=== PATIENT | female | born 1980 | race Caucasian/White ===

== ENCOUNTER 2023-12-22 17:14 | Emergency (ER) | payer OTHER, MEDICAID, SELFPAY ==
[2023-12-22] VITALS (8 sets, daily range): BP systolic 115–156; BP diastolic 78–90; PULSE 66–79; RESP 16–18; TEMP 36.9; O2SAT 95–97; BMI 38.9
--- NOTE | 2023-12-22 17:32 | DI.CT.S_ITS ---
PROCEDURE: CT HEAD/BRAIN WO CON INDICATIONS: head pain/confusion/stroke like sx TECHNIQUE: Noncontrast 4.5 mm thick angled axial sections acquired from the foramen magnum to the vertex, with coronal and sagittal reformats. For radiation dose reduction, the following was used: automated exposure control, adjustment of mA and/or kV according to patient size. COMPARISON: None. FINDINGS: Image quality: Diagnostic. CSF spaces: Basal cisterns are patent. No extra-axial fluid collections. Ventricles are normal in size and shape. Brain: No midline shift. No intracranial masses or hemorrhage. Blank-white matter interface is normal. Skull and face: Calvarium and visualized facial bones are intact, without suspicious lesions. Sinuses: Visualized sinuses and mastoids are clear. IMPRESSION: No acute intracranial pathology. Approved by: Fazal Roman M.D. on 12/22/2023 at 18:09
[2023-12-22 19:17] LABS: Add Manual Diff / Slide Review NO; Basophils Absolute Auto 100 /uL (0-100); Basophils Percent Auto 0.6 % (0-2); Eosinophils Absolute Auto 100 /uL (0-450); Eosinophils Percent Auto 1.2 % (2-4); Hematocrit 39.5 % (36-46); Hemoglobin 13.2 g/dL (12.0-16.0); Lymphocytes Absolute Auto 2800 /uL (1100-4500); Lymphocytes Percent Auto 25.6 % (25-40); Mean Corpuscular HGB Conc 33.4 % (30-36); Mean Corpuscular Hemoglobin 30.8 PG (26-34); Mean Corpuscular Volume 92.3 fL (80-100); Monocytes Absolute Auto 500 /uL (0-900); Monocytes Percent Auto 4.8 % (3-14); Neutrophils Absolute Auto 7500 /uL (1500-7000); Neutrophils Percent Auto 67.8 % (50-75); Platelet Count 390 X10^3/uL (150-400); Red Blood Cell Count 4.28 X10^6/uL (4.0-5.2); Red Cell Distribution Width 14.7 % (11.6-14.8); White Blood Cell Count 11.1 X10^3/uL (4.5-11.0)
[2023-12-22 19:29] LABS: Alanine Aminotransferase 22 IU/L (<35); Albumin 4.4 g/dL (3.5-5.0); Albumin Globulin Ratio 1.3 (1.0-2.8); Alkaline Phosphatase 81 U/L (38-126); Aspartate Aminotransferase 21 IU/L (14-36); BUN Creatinine Ratio 13.7 (6-22); Bilirubin Total 0.3 mg/dL (0.2-1.3); Blood Urea Nitrogen 10 mg/dL (7-17); Calcium 9.2 mg/dL (8.4-10.2); Carbon Dioxide 22 mmol/L (22-32); Chloride 105 mmol/L (98-107); Estimated Glomerular Filt Rate > 60 mL/min (>60); Globulin 3.3 g/dL (1.7-4.1); Glucose 91 mg/dL (70-100); HEMOLYSIS < 15 (0-50); Lipase 201 U/L (23-300); Potassium 3.8 mmol/L (3.4-5.1); Sodium 136 mmol/L (137-145); Total Protein 7.7 g/dL (6.3-8.2)
--- NOTE | 2023-12-22 22:06 | ED_ITS ---
HPI - Neuro Symptoms/Deficit General Chief Complaint: Neuro Symptoms/Deficit Stated Complaint: states wants to be checked out Time Seen by Provider: 12/22/23 19:08 Mode of arrival: Ambulatory History of Present Illness HPI Narrative: 43-year-old woman with a history of chronic migraine, alcohol use disorder currently on naltrexone and free of alcohol for 43 days was at work today turned around felt dizzy had a near syncopal episode, blurry vision poor focus racing heart felt she had to work at thinking to think. She went home from work and her partner felt that she needed further evaluation. She now has a significant headache that feels like her usual chronic migraine. She has never had symptoms like she experienced earlier as a migraine prodrome. No fevers, cough, chills. No current heart palpitations, chest pain, nausea or vomiting On Anticoagulants: No Review of Systems Review of Systems Narrative: Pertinent positive and negative findings as per HPI Hematologic/Lymphatic On Anticoagulants: No Patient History Medical History (Updated 12/22/23 @ 22:54 by Brenda Mcleod MD) Alcohol use disorder in remission Chronic migraine Exam Initial Vital Signs Initial Vital Signs: Vital Signs Temperature 98.5 F 12/22/23 17:18 Pulse Rate 79 12/22/23 17:18 Respiratory Rate 16 12/22/23 17:18 Blood Pressure 156/90 H 12/22/23 17:18 Pulse Oximetry 97 12/22/23 17:18 Oxygen Delivery Method Room Air 12/22/23 17:18 General: Healthy appearing, in no acute distress. Able to give a complete and coherent history. Well-nourished well-developed HEENT: Moist mucous membranes, normal sclera with reactive pupils, visual acuity is back to her baseline, peripheral saab are unremarkable Respiratory: Lungs are clear to auscultation, no wheezing no rales no rhonchi. Full and symmetrical air movement Cardiac: Regular rate and rhythm no murmurs no bruits Abdomen: Soft, nontender, good bowel tones, no flank pain Skin: Warm and dry, no rashes Neurologic: Grossly neurologically intact with no obvious asymmetries or abnormalities Extremities: No trauma, well perfused Psych: Cooperative, appropriate insight and affect Course Orders Ordered: ED Orders 12/22/23 17:32 CT head/brain wo con Stat 12/22/23 19:00 Complete Blood Count AUTO DIFF Stat Comprehensive Metabolic Panel Stat Lipase Stat Ondansetron HCl (Ondansetron 4 Mg/2 Ml Inj) 4 mg IV NOW PRN PRN Reason: Nausea And Vomiting Vital Signs Vital signs: Vital Signs - 8 hr 12/22/23 17:18 12/22/23 20:37 12/22/23 21:00 Temperature 98.5 F Pulse Rate 79 67 66 Respiratory Rate 16 Blood Pressure 156/90 H 123/78 Pulse Oximetry 97 97 96 Oxygen Delivery Method Room Air 12/22/23 21:30 Temperature Pulse Rate 69 Respiratory Rate Blood Pressure Pulse Oximetry 95 Oxygen Delivery Method MDM - Neuro Symptoms/Deficit Lab Data 12/22/23 19:00 12/22/23 19:00 Labs: Lab Results 12/22/23 Range/Units 19:00 WBC 11.1 H (4.5-11.0) X10^3/uL RBC 4.28 (4.0-5.2) X10^6/uL Hgb 13.2 (12.0-16.0) g/dL Hct 39.5 (36-46) % MCV 92.3 (80-100) fL MCH 30.8 (26-34) PG MCHC 33.4 (30-36) % RDW 14.7 (11.6-14.8) % Plt Count 390 (150-400) X10^3/uL Neut % (Auto) 67.8 (50-75) % Lymph % (Auto) 25.6 (25-40) % [place] % (Auto) 4.8 (3-14) % Eos % (Auto) 1.2 L (2-4) % Baso % (Auto) 0.6 (0-2) % Neut # (Auto) 7500 H (3160-5521) /uL Lymph # (Auto) 2800 (7068-9937) /uL [place] # (Auto) 500 (0-900) /uL Eos # (Auto) 100 (0-450) /uL Baso # (Auto) 100 (0-100) /uL Sodium 136 L (137-145) mmol/L Potassium 3.8 (3.4-5.1) mmol/L Chloride 105 (98-107) mmol/L Carbon Dioxide 22 (22-32) mmol/L BUN 10 (7-17) mg/dL Creatinine 0.73 (0.52-1.04) mg/dL Estimated GFR > 60 (>60) mL/min BUN/Creatinine Ratio 13.7 (6-22) Glucose 91 (70-100) mg/dL Calcium 9.2 (8.4-10.2) mg/dL Total Bilirubin 0.3 (0.2-1.3) mg/dL AST 21 (14-36) IU/L ALT 22 (<35) IU/L Alkaline Phosphatase 81 (38-126) U/L Total Protein 7.7 (6.3-8.2) g/dL Albumin 4.4 (3.5-5.0) g/dL Globulin 3.3 (1.7-4.1) g/dL Albumin/Globulin Ratio 1.3 (1.0-2.8) Lipase 201 (23-300) U/L Point of Care Testing Test Results Negative Urine Dip Bedside Urine Glucose Negative Bedside Urine Bilirubin - Negative Bedside Urine Ketone - Negative Urine Specific [place] 1.010 Bedside Urine Occult Blood - Negative Bedside Urine pH 7.0 Bedside Urine Protein - Negative Bedside Urine Urobilinogen - Negative Bedside Urine Nitrite - Negative Bedside Urine Leukocytes - Negative Esterase MDM Narrative Medical decision making narrative: CC: Near syncopal episode, no headache Complicating co-morbidities: Chronic migraine, she has been on naltrexone and alcohol-free now for 43 days Data collected from: patient Differential considered: Dehydration, infection, migraine, viral syndrome Exam documented above, pertinent findings include: Benign exam at this time Lab Test results independently reviewed as above. Pertinent findings: CBC is unremarkable Chemistries are reassuring with normal blood sugar at 91 Urine does not suggest urinary tract infection Patient is not Imaging studies independently reviewed: CT head is unremarkable Treatments: Treatment for her migraine, IV Toradol, Benadryl and Compazine were effective in controlling headache Discussion: 43-year-old woman with a near syncopal episode earlier today followed by migraine in the setting of chronic migraines. No evidence of significant dehydration, sure abnormalities electrolyte abnormalities, anemia or infection. CT scan of her head is reassuring. Reviewed all of these findings with her. Did offer to treat her current migraines with medications as above. She is following up with her primary care physician later this week. Encouraged her to return if symptoms are worsening or new findings are appreciated. At this time there has no indication for additional imaging or hospitalization Discharge Plan Departure Patient Disposition: Home Clinical Impression: Near syncope Migraine Qualifiers: Migraine type: unspecified Status migrainosus presence: without status migrainosus Intractability: not intractable Qualified Code(s): G43.909 - Migraine, unspecified, not intractable, without status migrainosus Instructions: DI for Migraine Activity Restrictions/Additional Instructions: Thank you for coming in today Your blood work and head CT were very reassuring. There was no evidence of infection, significant anemia, electrolyte abnormalities, your kidney function is normal liver function looks good. Your brain is beautiful with no signs of abnormalities You are given Toradol, Benadryl and Compazine to help with your current migraine headache At this point I do not have a full explanation for your symptoms earlier this morning however I am not seeing anything that is life-threatening or that requires hospitalization. If you find that you are getting worse or develop any new symptoms, please feel free to return to the emergency department for further evaluation. Referrals: Miscellaneous,[facility] [Primary Care Provider] - Stand Alone Forms: Patient Portal/API
[2023-12-22] MEDS: PROCHLORPERAZINE 10 MG/2 ML VIAL IV (22:45)
[2023-12-22] MEDS: KETOROLAC 30 MG/ML VIAL 15 MG IV (22:46)
[2023-12-22] MEDS: diphenhydrAMINE 50 MG/ML VIAL 25 MG IV (22:47)
== END 2023-12-22 23:13 | disposition home or self-care (01) ==
PROVIDERS: Emergency Medicine; Emergency Provider Emergency Medicine
DX: R55 Syncope and collapse (principal); G43.909 Migraine, unspecified, not intractable, without status migrainosus
CPT/HCPCS: 36415; 70450; 80053; 81003; 81025; 83690; 85025; 96374; 96375; 99284; J0780; J1200; J1885

== ENCOUNTER 2024-06-29 16:20 | Emergency (ER) | payer OTHER, MEDICAID, SELFPAY ==
[2024-06-29] VITALS (15 sets, daily range): BP systolic 106–155; BP diastolic 56–96; PULSE 78–97; RESP 13–25; TEMP 36.3; O2SAT 91–98; BMI 37.2
[2024-06-29] MEDS: ONDANSETRON 4 MG/2 ML INJ IV ×2 (17:20→21:32)
[2024-06-29] MEDS: LORazepam 2 MG/ML INJ IV ×2 (17:20→21:29)
--- NOTE | 2024-06-29 17:31 | EKG_ITS ---
[address] [address] Test Date: 2024-06-29 Pat Name: Diane Salcedo Department: [facility] Room: Gender: Female Magistrate Assistant: MANAS : 1980 Requested By: Order Number: [id number] Reading MD: Baltazar Duffy MD Measurements Intervals [place] Rate: 87 P: 66 DE: 174 QRS: 35 QRSD: 92 T: 31 QT: 368 QTc: 442 Interpretive Statements Normal sinus rhythm Electronically Signed On 06-29-2024 20:02:14 PDT by Baltazar Duffy MD
[2024-06-29 17:32] LABS: Add Manual Diff / Slide Review NO; Basophils Absolute Auto 0 /uL (0-100); Basophils Percent Auto 0.5 % (0-2); Eosinophils Absolute Auto 0 /uL (0-450); Eosinophils Percent Auto 0.6 % (2-4); Hemoglobin 14.8 g/dL (12.0-16.0); Lymphocytes Absolute Auto 2900 /uL (1100-4500); Lymphocytes Percent Auto 44.7 % (25-40); Mean Corpuscular HGB Conc 33.6 % (30-36); Mean Corpuscular Hemoglobin 30.8 PG (26-34); Mean Corpuscular Volume 91.5 fL (80-100); Monocytes Absolute Auto 300 /uL (0-900); Monocytes Percent Auto 4.6 % (3-14); Neutrophils Absolute Auto 3200 /uL (1500-7000); Neutrophils Percent Auto 49.6 % (50-75); Platelet Count 411 X10^3/uL (150-400); Red Blood Cell Count 4.81 X10^6/uL (4.0-5.2); Red Cell Distribution Width 14.4 % (11.6-14.8); White Blood Cell Count 6.5 X10^3/uL (4.5-11.0)
[2024-06-29 17:37] LABS: Acetaminophen < 10 ug/mL (10-30); Alanine Aminotransferase 33 IU/L (<35); Albumin 4.5 g/dL (3.5-5.0); Albumin Globulin Ratio 1.3 (1.0-2.8); Alkaline Phosphatase 88 U/L (38-126); Aspartate Aminotransferase 41 IU/L (14-36); BUN Creatinine Ratio 11.2 (6-22); Bilirubin Total 0.5 mg/dL (0.2-1.3); Blood Urea Nitrogen 10 mg/dL (7-17); Calcium 9.2 mg/dL (8.4-10.2); Carbon Dioxide 22 mmol/L (22-32); Chloride 108 mmol/L (98-107); Estimated Glomerular Filt Rate > 60 mL/min (>60); Ethanol (ETOH) 218 mg/dL; Globulin 3.5 g/dL (1.7-4.1); Glucose 105 mg/dL (70-100); HEMOLYSIS < 15 (0-50); Potassium 3.8 mmol/L (3.4-5.1); Salicylate < 1.0 mg/dL (<20); Sodium 145 mmol/L (137-145)
[2024-06-29 17:41] LABS: COVID19 -Nasal RAPID Negative (Negative)
[2024-06-29 17:42] LABS: Ur Creatinine Normal (Normal); Ur Specific Gravity Normal (Normal); Urine pH Normal (Normal)
[2024-06-29 17:43] LABS: UR Morphine/Opiate cutoff 300 Negative (Negative); Urine Amphetamines Negative (Negative); Urine Barbiturates Negative (Negative); Urine Benzodiazepines Positive (Negative); Urine Cocaine Negative (Negative); Urine MDMA Negative (Negative); Urine Methadone Negative (Negative); Urine Methamphetamines Negative (Negative); Urine Oxycodone Negative (Negative); Urine Phencyclidine Negative (Negative); Urine Tetrahydrocannabinol Positive (Negative); Urine Tricyclic Antidepressant Negative (Negative)
[2024-06-29 18:02] LABS: Free T4, Direct Thyroxine 0.95 ng/dL (0.78-2.19)
--- NOTE | 2024-06-29 18:02 | CM.SWNOTE ---
ED MARKETING SPECIALIST Assessment Note: MARKETING SPECIALIST - Clarifier Operator Helper Assessment MARKETING SPECIALIST/Clarifier Operator Helper Assessment Time Spent with Patient Start date 06/29/24 Visit Start Time 16:20 End date 06/29/24 Visit End Time 16:58 Total time Care Management spent on 38 minutes patient visit-in minutes Substance Abuse Screening Include Onset, Duration, Intensity Presenting Problem Patient presented to the ED requesting ETOH detox. Patient states she had her last drink on 06/29 at 1550. Patient states her stomach is burning, her body hurts and she is tearful/regretful. Precipitating Event(s) Patient states she has been houseless and living in her truck for the past 45 days. She has been attempting to get into a program with the [facility] who provides motel vouchers and other community resources. Patient Strengths Patient is supported by Kristy Butler, Resource and Lead Ramp Agent at the [facility] (ph# ) and is also taking initiative to seek help. Patient gives consent for IH to contact Kristy Butler for continued care due to patient with no phone. Current Behavioral Health Provider(s) [facility] Include Facility, Provider, Ph. # Arash Avalos ph# [phone]. [place], [place]. Family Hx of Behavioral Abuse None reported. Per Sveta, hx of alcohol use with withdrawal and suicidal ideation. Rehab Facilities? ((Date(s), Location(s) None reported. ) [facility] - 05/19/24, 06/13/24 for emergency/inpatient for similar symptoms. History of Withdrawal? Seizures? Pt reports hx of seizures with withdrawal. Initial CIWA is 32. Longest Period of Sobriety several months Psychosocial information & Support Patient is a 43yo female, Systems currently living in her truck in [place], is here for ETOH detox. School/Work None reported. Legal Concerns Legal Matters - Outstanding Issues None reported. Mental Status Orientation (Person/Place/Time) AOx3 Stated Mood Tearful, I'm so sorry. Affect (Congruent with Mood?) Tearful, full range, congruent with mood Thought Content - Specify/Describe None reported, none identified Obsessions, Delusions, Hallucinations during assessment. Thought Processes (Dhqqhwx-Prwgaoks-Uxnx Logical, coherent Wgbrztrz-Jykbimoe-Wbcwwalstt- Sapzwzxlglgjbe-Fapsnah-Npasmuogdzdf- Thought Blocking) Speech (Egeamb-Nwwq-Lwelvuf-Rapid-Soft- Normal Loud-Pressured) Motor (Pvbrmb-Yxmyywmhm-Nqyq-Other) Normal Insight (Rpbe-Joge-Bncq/Limited) Good Judgement (Jvos-Alvw-Lhuu/Limited) Fair/limited Impulse Control (Adequate-Impaired) Impaired Memory (Phxxolfeh-Nlvjqj-Nutnnw, Intact Impaired-Intact) Concentration (Intact-Impaired) Intact Attention (Intact-Impaired) Intact Behavior (Appropriate-Inappropriate) Appropriate Additional Comment Patient is calm, cooperative and communicative during assessment. Patient is hopeful to receive help. Risk Assessment Suicidal Ideation (Plan) No Homicidal Ideation (Plan) No Intervention Intervention Reviewed chart and discussed with ED Provider pt's medical status and discharge needs. ED MARKETING SPECIALIST meets with patient. Patient endorses heavy ETOH use (1/2 gallon of whiskey every day) and has been drinking more heavily in the last 8 days. ED MARKETING SPECIALIST and patient discuss goals of care. Patient explains they are agreeable to receive inpatient detox for ETOH withdrawal at this time. At this time, it is the opinion of this MARKETING SPECIALIST that patient would benefit from inpatient detox for ETOH withdrawal. MARKETING SPECIALIST informs ED provider, Dr. Williamson, who indicates agreement. Plan RA Plan Once patient is medically clear, ED staff will attempt to find inpatient detox placement for patient. NORY Montague
[2024-06-29 19:03] LABS: Bacteria Urine None Seen; Culture Indicated Urine Cult Not Indicated; RBC Urine None Seen (0-5/HPF); Squamous Epithelial Cell Urine 1-5 /HPF (0-5/HPF); Urine Volume 10mL (spun); WBC Urine None Seen (0-5/HPF)
[2024-06-29] MEDS: PHENobarbital 65 MG/ML VIAL 130 MG IV (19:10)
[2024-06-29] MEDS: SODIUM CHLORIDE 0.9% 1,000 ML 1000 ML IV (19:10)
[2024-06-29] MEDS: LORazepam 2 MG/ML INJ 1 MG IV (19:15)
--- NOTE | 2024-06-29 20:02 | CM.SWNOTE ---
Addendum entered by CASIE Denis 06/29/24 20:18: Pt gave permission for IH to communicate with Kristy Butler, Resource and Mold Laminator at the [facility]# [phone]. NORY Montague Original Note: ED WIND POWER PROJECT MANAGER Note: Pt still pending ED Provider evaluation, ED WIND POWER PROJECT MANAGER assessment completed. ED WIND POWER PROJECT MANAGER calls [facility], it is reported there are no female beds available. ED WIND POWER PROJECT MANAGER calls [facility], it is reported there are female beds available. (fax# [phone]). ED WIND POWER PROJECT MANAGER reviewed above with ED RN, Charbel, and GIFTED TEACHER; ED Staff to coordinate referral to detox when medically cleared. NORY Montague
--- NOTE | 2024-06-29 21:41 | ED.ALCOHOL ---
HPI - Alcohol <Estelle Ochoa DO - Last Filed: 07/05/24 08:30> General Chief Complaint: Toxicology Problem Stated Complaint: detox Time Seen by Provider: 06/29/24 19:00 History of Present Illness HPI narrative: Patient is a 43-year-old female history of anxiety alcoholism presenting today with wanting detox. Reports that her mom April 27 since then she has been drinking off and on a week on a week off at times. She has been drinking 1 gal of whiskey daily for the last 8 days. She has had a 5th today. She has had some shakes. No hallucinations. She has been living in her car since her mom family not wanting her around. If she goes to detox then she can get housing support through [employer]. Related Data Allergies Allergy/AdvReac Type Severity Reaction Status Date / Time No Known Drug Allergies Allergy Verified 06/29/24 16:57 Patient History <Estelle Ochoa DO - Last Filed: 07/05/24 08:30> Medical History Alcohol use disorder in remission Chronic migraine Social History Smoking Status: Current every day smoker Smoking Status: Current every day smoker tobacco type: cigarettes and vaping Alcohol type: hard liquor Exam <Estelle Ochoa DO - Last Filed: 07/05/24 08:30> Initial Vital Signs Initial Vital Signs: Vital Signs Temperature 97.4 F L 06/29/24 16:58 Pulse Rate 95 H 06/29/24 16:58 Respiratory Rate 18 06/29/24 16:58 Blood Pressure 155/96 H 06/29/24 16:58 Pulse Oximetry 95 06/29/24 16:58 Oxygen Delivery Method Room Air 06/29/24 16:58 GENERAL: Alert well-appearing 43-year-old female HEENT: Head atraumatic,EOMI, pupils reactive, face symmetric, moist mucous membranes CARDIOVASCULAR: Regular rate and rhythm without murmurs, rubs or gallops. RESPIRATORY: Breath sounds equal bilaterally, no wheezes rales or rhonchi. ABDOMEN: Soft, nontender. Normoactive bowel sounds all 4 quadrants. No guarding or rebound. EXTREMITIES: Normal range of motion, no clubbing or edema. Neurovascularly intact NEUROLOGICAL: Alert and oriented x4.Normal gait and speech. Cranial nerves II through XII grossly intact. Minimal tremor SKIN: Warm, dry, no laceration, no petechiae, no rashes or lesions. <Baltazar Chino DO - Last Filed: 06/30/24 08:54> Initial Vital Signs Initial Vital Signs: Vital Signs Temperature 97.4 F L 06/29/24 16:58 Pulse Rate 95 H 06/29/24 16:58 Respiratory Rate 18 06/29/24 16:58 Blood Pressure 155/96 H 06/29/24 16:58 Pulse Oximetry 95 06/29/24 16:58 Oxygen Delivery Method Room Air 06/29/24 16:58 Course <Estelle Ochoa DO - Last Filed: 07/05/24 08:30> Orders Ordered: Discontinued Medications Acetaminophen (Acetaminophen 325 Mg Tablet) 975 mg PO NOW ONE Stop: 06/29/24 22:08 Last Admin: 06/29/24 22:09 Dose: 975 mg Documented By: MINDY Sodium Chloride (Normal Saline 0.9%) 1,000 mls @ 1,000 mls/hr IV BOLUS ONE Stop: 06/29/24 20:00 Last Infusion: 06/29/24 20:03 Dose: Infused Documented By: Admin: 06/29/24 19:10 Dose: 1,000 mls/hr Documented By: MINDY Thiamine HCl 100 mg/ Sodium (Chloride) 101 mls @ 404 mls/hr IV NOW ONE Stop: 06/29/24 21:40 Last Infusion: 06/30/24 00:13 Dose: Infused Documented By: Admin: 06/29/24 21:52 Dose: 404 mls/hr Documented By: MINDY Ketorolac Tromethamine (Ketorolac 30 Mg/Ml Vial) 15 mg IV NOW ONE Stop: 06/30/24 05:26 Last Admin: 06/30/24 05:33 Dose: 15 mg Documented By: Lorazepam (Lorazepam 2 Mg/Ml Inj) 0 mg IV CIWAPRN PRN; Protocol PRN Reason: Alcohol Withdrawal Last Admin: 06/29/24 21:29 Dose: 2 mg Documented By: Admin: 06/29/24 17:20 Dose: 2 mg Documented By: NIC Lorazepam (Lorazepam 2 Mg/Ml Inj) 1 mg IV NOW ONE Stop: 06/29/24 19:02 Last Admin: 06/29/24 19:15 Dose: 1 mg Documented By: MINDY Lorazepam (Lorazepam 2 Mg/Ml Inj) 1 mg IV NOW ONE Stop: 06/30/24 01:14 Last Admin: 06/30/24 01:21 Dose: 1 mg Documented By: MICHELLE Ondansetron HCl (Ondansetron 4 Mg/2 Ml Inj) 4 mg IV Q6HR PRN PRN Reason: Nausea And Vomiting Last Admin: 06/30/24 05:33 Dose: 4 mg Documented By: Admin: 06/29/24 21:32 Dose: 4 mg Documented By: Admin: 06/29/24 17:20 Dose: 4 mg Documented By: NIC Pantoprazole Sodium (Pantoprazole 40 Mg Vial) 40 mg IV NOW ONE Stop: 06/29/24 21:40 Last Admin: 06/29/24 21:54 Dose: 40 mg Documented By: MINDY Phenobarbital (Phenobarbital 65 Mg/Ml Vial) 130 mg IV NOW ONE Stop: 06/29/24 19:02 Last Admin: 06/29/24 19:10 Dose: 130 mg Documented By: MINDY Vital Signs Vital signs: Vital Signs - 8 hr 06/30/24 01:01 06/30/24 01:30 06/30/24 02:00 Pulse Rate 92 H 84 87 Respiratory Rate 22 23 21 Blood Pressure Pulse Oximetry 92 92 Oxygen Delivery Method 06/30/24 02:30 06/30/24 03:00 06/30/24 03:30 Pulse Rate 81 84 80 Respiratory Rate 20 20 21 Blood Pressure Pulse Oximetry 90 L 95 95 Oxygen Delivery Method 06/30/24 04:00 06/30/24 04:30 06/30/24 05:00 Pulse Rate 87 91 H 83 Respiratory Rate 22 22 20 Blood Pressure Pulse Oximetry 94 94 94 Oxygen Delivery Method Room Air 06/30/24 05:30 06/30/24 05:37 06/30/24 05:37 Pulse Rate 87 87 Respiratory Rate 21 23 Blood Pressure 144/91 H Pulse Oximetry 93 92 Oxygen Delivery Method Room Air 06/30/24 07:00 06/30/24 07:00 06/30/24 07:30 Pulse Rate 92 H 81 Respiratory Rate 20 20 Blood Pressure 132/77 Pulse Oximetry 96 93 Oxygen Delivery Method 06/30/24 08:00 06/30/24 08:00 06/30/24 08:30 Pulse Rate 90 91 H Respiratory Rate 20 21 Blood Pressure 136/75 Pulse Oximetry 95 95 Oxygen Delivery Method 06/30/24 08:38 06/30/24 08:38 Pulse Rate 93 H Respiratory Rate 22 Blood Pressure 144/90 H Pulse Oximetry 95 Oxygen Delivery Method <Baltazar Chino, DO - Last Filed: 06/30/24 08:54> Orders Ordered: Discontinued Medications Acetaminophen (Acetaminophen 325 Mg Tablet) 975 mg PO NOW ONE Stop: 06/29/24 22:08 Last Admin: 06/29/24 22:09 Dose: 975 mg Documented By: MINDY Sodium Chloride (Normal Saline 0.9%) 1,000 mls @ 1,000 mls/hr IV BOLUS ONE Stop: 06/29/24 20:00 Last Infusion: 06/29/24 20:03 Dose: Infused Documented By: Admin: 06/29/24 19:10 Dose: 1,000 mls/hr Documented By: MINDY Thiamine HCl 100 mg/ Sodium (Chloride) 101 mls @ 404 mls/hr IV NOW ONE Stop: 06/29/24 21:40 Last Infusion: 06/30/24 00:13 Dose: Infused Documented By: Admin: 06/29/24 21:52 Dose: 404 mls/hr Documented By: MINDY Ketorolac Tromethamine (Ketorolac 30 Mg/Ml Vial) 15 mg IV NOW ONE Stop: 06/30/24 05:26 Last Admin: 06/30/24 05:33 Dose: 15 mg Documented By: Lorazepam (Lorazepam 2 Mg/Ml Inj) 0 mg IV CIWAPRN PRN; Protocol PRN Reason: Alcohol Withdrawal Last Admin: 06/29/24 21:29 Dose: 2 mg Documented By: Admin: 06/29/24 17:20 Dose: 2 mg Documented By: NIC Lorazepam (Lorazepam 2 Mg/Ml Inj) 1 mg IV NOW ONE Stop: 06/29/24 19:02 Last Admin: 06/29/24 19:15 Dose: 1 mg Documented By: MINDY Lorazepam (Lorazepam 2 Mg/Ml Inj) 1 mg IV NOW ONE Stop: 06/30/24 01:14 Last Admin: 06/30/24 01:21 Dose: 1 mg Documented By: MICHELLE Ondansetron HCl (Ondansetron 4 Mg/2 Ml Inj) 4 mg IV Q6HR PRN PRN Reason: Nausea And Vomiting Last Admin: 06/30/24 05:33 Dose: 4 mg Documented By: Admin: 06/29/24 21:32 Dose: 4 mg Documented By: Admin: 06/29/24 17:20 Dose: 4 mg Documented By: NIC Pantoprazole Sodium (Pantoprazole 40 Mg Vial) 40 mg IV NOW ONE Stop: 06/29/24 21:40 Last Admin: 06/29/24 21:54 Dose: 40 mg Documented By: MINDY Phenobarbital (Phenobarbital 65 Mg/Ml Vial) 130 mg IV NOW ONE Stop: 06/29/24 19:02 Last Admin: 06/29/24 19:10 Dose: 130 mg Documented By: MINDY Vital Signs Vital signs: Vital Signs - 8 hr 06/30/24 01:01 06/30/24 01:30 06/30/24 02:00 Pulse Rate 92 H 84 87 Respiratory Rate 22 23 21 Blood Pressure Pulse Oximetry 92 92 Oxygen Delivery Method 06/30/24 02:30 06/30/24 03:00 06/30/24 03:30 Pulse Rate 81 84 80 Respiratory Rate 20 20 21 Blood Pressure Pulse Oximetry 90 L 95 95 Oxygen Delivery Method 06/30/24 04:00 06/30/24 04:30 06/30/24 05:00 Pulse Rate 87 91 H 83 Respiratory Rate 22 22 20 Blood Pressure Pulse Oximetry 94 94 94 Oxygen Delivery Method Room Air 06/30/24 05:30 06/30/24 05:37 06/30/24 05:37 Pulse Rate 87 87 Respiratory Rate 21 23 Blood Pressure 144/91 H Pulse Oximetry 93 92 Oxygen Delivery Method Room Air 06/30/24 07:00 06/30/24 07:00 06/30/24 07:30 Pulse Rate 92 H 81 Respiratory Rate 20 20 Blood Pressure 132/77 Pulse Oximetry 96 93 Oxygen Delivery Method 06/30/24 08:00 06/30/24 08:00 06/30/24 08:30 Pulse Rate 90 91 H Respiratory Rate 20 21 Blood Pressure 136/75 Pulse Oximetry 95 95 Oxygen Delivery Method 06/30/24 08:38 06/30/24 08:38 Pulse Rate 93 H Respiratory Rate 22 Blood Pressure 144/90 H Pulse Oximetry 95 Oxygen Delivery Method MDM - Alcohol <Estelle Don, DO - Last Filed: 07/05/24 08:30> Lab Data 06/29/24 17:15 06/29/24 17:15 Labs: Lab Results 06/29/24 06/29/24 06/29/24 Range/Units 17:10 17:12 17:15 WBC 6.5 (4.5-11.0) X10^3/uL RBC 4.81 (4.0-5.2) X10^6/uL Hgb 14.8 (12.0-16.0) g/dL Hct 44.0 (36-46) % MCV 91.5 (80-100) fL MCH 30.8 (26-34) PG MCHC 33.6 (30-36) % RDW 14.4 (11.6-14.8) % Plt Count 411 H (150-400) X10^3/uL Neut % (Auto) 49.6 L (50-75) % Lymph % (Auto) 44.7 H (25-40) % [place] % (Auto) 4.6 (3-14) % Eos % (Auto) 0.6 L (2-4) % Baso % (Auto) 0.5 (0-2) % Neut # (Auto) 3200 (0105-9284) /uL Lymph # (Auto) 2900 (0036-2816) /uL [place] # (Auto) 300 (0-900) /uL Eos # (Auto) 0 (0-450) /uL Baso # (Auto) 0 (0-100) /uL Sodium 145 (137-145) mmol/L Potassium 3.8 (3.4-5.1) mmol/L Chloride 108 H (98-107) mmol/L Carbon Dioxide 22 (22-32) mmol/L BUN 10 (7-17) mg/dL Creatinine 0.89 (0.52-1.04) mg/dL Estimated GFR > 60 (>60) mL/min BUN/Creatinine Ratio 11.2 (6-22) Glucose 105 H (70-100) mg/dL Calcium 9.2 (8.4-10.2) mg/dL Total Bilirubin 0.5 (0.2-1.3) mg/dL AST 41 H (14-36) IU/L ALT 33 (<35) IU/L Alkaline Phosphatase 88 (38-126) U/L Total Protein 8.0 (6.3-8.2) g/dL Albumin 4.5 (3.5-5.0) g/dL Globulin 3.5 (1.7-4.1) g/dL Albumin/Globulin Ratio 1.3 (1.0-2.8) TSH 1.30 (0.47-4.68) uIU/mL Free T4 0.95 (0.78-2.19) ng/dL Urine RBC None seen (0-5/HPF) Urine WBC None seen (0-5/HPF) Ur Squamous Epith Cells 1-5 /hpf (0-5/HPF) Urine Bacteria None seen (None) Ur Culture Indicated? Cult not indicated Vol Urine Centrifuged 10ml (spun) Salicylates < 1.0 (<20) mg/dL U Opiates 300ng/mL cut Negative (Negative) Ur Oxycodone Screen Negative (Negative) Urine Methadone Screen Negative (Negative) Acetaminophen < 10 (10-30) ug/mL Ur Barbiturates Screen Negative (Negative) U Tricyclic Antidepress Negative (Negative) Ur Phencyclidine Scrn Negative (Negative) Ur Amphetamines Screen Negative (Negative) U Methamphetamines Scrn Negative (Negative) Ur MDMA Scrn (Ecstasy) Negative (Negative) U Benzodiazepines Scrn Positive H (Negative) Urine Cocaine Screen Negative (Negative) U Marijuana (THC) Screen Positive H (Negative) Urine pH Normal (Normal) Urine Specific [place] Normal (Normal) Ethyl Alcohol 218 H ( - 10) mg/dL Ur Creatinine Normal (Normal) SARS-CoV-2 (PCR) Negative (Negative) Point of Care Testing Test Results Negative Urine Dip Bedside Urine Glucose Negative Bedside Urine Bilirubin - Negative Bedside Urine Ketone - Negative Urine Specific [place] 1.010 Bedside Urine Occult Blood +/- Bedside Urine pH 6.0 Bedside Urine Protein - Negative Bedside Urine Urobilinogen - Negative Bedside Urine Nitrite - Negative Bedside Urine Leukocytes - Negative Esterase ECG Data Attestation: I personally reviewed and interpreted this ECG as follows: Prior ECG tracings: not available for review Interpretation: Sinus rhythm rate 87 NE interval 174 no acute ischemia MDM Narrative Medical decision making narrative: Patient 43-year-old female history of alcoholism wanting detox today. Alcohol level is 218. Other blood work has been reviewed electrolytes within normal limits, CBC within normal limits EKGs has been reviewed no acute ischemia Patient has been given Ativan and phenobarbital now feeling better CIWA has improved Patient is accepted at [facility], the bed not available until morning after 10:00 a.m. Patient signed out to Dr. Chino <Baltazar Chino, DO - Last Filed: 06/30/24 08:54> Lab Data Labs: Lab Results 06/29/24 06/29/24 06/29/24 Range/Units 17:10 17:12 17:15 WBC 6.5 (4.5-11.0) X10^3/uL RBC 4.81 (4.0-5.2) X10^6/uL Hgb 14.8 (12.0-16.0) g/dL Hct 44.0 (36-46) % MCV 91.5 (80-100) fL MCH 30.8 (26-34) PG MCHC 33.6 (30-36) % RDW 14.4 (11.6-14.8) % Plt Count 411 H (150-400) X10^3/uL Neut % (Auto) 49.6 L (50-75) % Lymph % (Auto) 44.7 H (25-40) % [place] % (Auto) 4.6 (3-14) % Eos % (Auto) 0.6 L (2-4) % Baso % (Auto) 0.5 (0-2) % Neut # (Auto) 3200 (9397-2508) /uL Lymph # (Auto) 2900 (0742-8847) /uL [place] # (Auto) 300 (0-900) /uL Eos # (Auto) 0 (0-450) /uL Baso # (Auto) 0 (0-100) /uL Sodium 145 (137-145) mmol/L Potassium 3.8 (3.4-5.1) mmol/L Chloride 108 H (98-107) mmol/L Carbon Dioxide 22 (22-32) mmol/L BUN 10 (7-17) mg/dL Creatinine 0.89 (0.52-1.04) mg/dL Estimated GFR > 60 (>60) mL/min BUN/Creatinine Ratio 11.2 (6-22) Glucose 105 H (70-100) mg/dL Calcium 9.2 (8.4-10.2) mg/dL Total Bilirubin 0.5 (0.2-1.3) mg/dL AST 41 H (14-36) IU/L ALT 33 (<35) IU/L Alkaline Phosphatase 88 (38-126) U/L Total Protein 8.0 (6.3-8.2) g/dL Albumin 4.5 (3.5-5.0) g/dL Globulin 3.5 (1.7-4.1) g/dL Albumin/Globulin Ratio 1.3 (1.0-2.8) TSH 1.30 (0.47-4.68) uIU/mL Free T4 0.95 (0.78-2.19) ng/dL Urine RBC None seen (0-5/HPF) Urine WBC None seen (0-5/HPF) Ur Squamous Epith Cells 1-5 /hpf (0-5/HPF) Urine Bacteria None seen (None) Ur Culture Indicated? Cult not indicated Vol Urine Centrifuged 10ml (spun) Salicylates < 1.0 (<20) mg/dL U Opiates 300ng/mL cut Negative (Negative) Ur Oxycodone Screen Negative (Negative) Urine Methadone Screen Negative (Negative) Acetaminophen < 10 (10-30) ug/mL Ur Barbiturates Screen Negative (Negative) U Tricyclic Antidepress Negative (Negative) Ur Phencyclidine Scrn Negative (Negative) Ur Amphetamines Screen Negative (Negative) U Methamphetamines Scrn Negative (Negative) Ur MDMA Scrn (Ecstasy) Negative (Negative) U Benzodiazepines Scrn Positive H (Negative) Urine Cocaine Screen Negative (Negative) U Marijuana (THC) Screen Positive H (Negative) Urine pH Normal (Normal) Urine Specific [place] Normal (Normal) Ethyl Alcohol 218 H ( - 10) mg/dL Ur Creatinine Normal (Normal) SARS-CoV-2 (PCR) Negative (Negative) Point of Care Testing Test Results Negative Urine Dip Bedside Urine Glucose Negative Bedside Urine Bilirubin - Negative Bedside Urine Ketone - Negative Urine Specific [place] 1.010 Bedside Urine Occult Blood +/- Bedside Urine pH 6.0 Bedside Urine Protein - Negative Bedside Urine Urobilinogen - Negative Bedside Urine Nitrite - Negative Bedside Urine Leukocytes - Negative Esterase MDM Narrative Medical decision making narrative: Patient 43-year-old female history of alcoholism wanting detox today. Alcohol level is 218. Other blood work has been reviewed electrolytes within normal limits, CBC within normal limits EKGs has been reviewed no acute ischemia Patient has been given Ativan and phenobarbital now feeling better CIWA has improved Patient is accepted at [facility], the bed not available until morning after 10:00 a.m. Patient signed out to Dr. Chino Patient is signed out to me at shift change by Dr. Sixto ramírez. All lab work, imaging studies, nursing notes, vital signs, medication list, triage note, reviewed. Differential diagnosis includes alcohol intoxication alcohol use abuse and withdrawal. Patient will be discharged given a cab voucher and will be entering alcohol rehab facility upon discharge. Return with new or worsening symptoms Discharge Plan Departure Patient Disposition: Home Clinical Impression: Alcoholic intoxication Qualifiers: Complication of substance-induced condition: uncomplicated Qualified Code(s): F10.920 - Alcohol use, unspecified with intoxication, uncomplicated Instructions: DI for Alcohol Use Disorder Referrals: Miscellaneous,Doctor, MD [Primary Care Provider] - Stand Alone Forms: Patient Portal/API/Survey
[2024-06-29] MEDS: THIAMINE 100 MG in SODIUM CHLORIDE 0.9% 100 ML 404 MG IV (21:52)
[2024-06-29] MEDS: PANTOPRAZOLE 40 MG VIAL IV (21:54)
[2024-06-29] MEDS: ACETAMINOPHEN 325 MG TABLET 975 MG PO (22:09)
[2024-06-30] VITALS (18 sets, daily range): BP systolic 132–144; BP diastolic 75–91; PULSE 80–93; RESP 20–28; O2SAT 90–96
[2024-06-30] MEDS: LORazepam 2 MG/ML INJ 1 MG IV (01:21)
[2024-06-30] MEDS: ONDANSETRON 4 MG/2 ML INJ IV (05:33)
[2024-06-30] MEDS: KETOROLAC 30 MG/ML VIAL 15 MG IV (05:33)
== END 2024-06-30 09:13 | disposition home or self-care (01) ==
PROVIDERS: Emergency Medicine; Emergency Provider Family Medicine
DX: F10.129 Alcohol abuse with intoxication, unspecified (principal); Y90.7 Blood alcohol level of 200-239 mg/100 ml
CPT/HCPCS: 36415; 80053; 80305; 80320; 80329; 81003; 81015; 81025; 84439; 84443; 85025; 87635; 93005; 93010; 96361; 96365; 96366; 96375; 96376; 99284; G0480; J1885; J2060; J2405; J2470; J2560

== ENCOUNTER 2024-09-04 20:11 | Emergency (ER) | payer OTHER, MEDICAID, SELFPAY ==
[2024-09-04 20:32] VITALS: BP 142/105; PULSE 54; RESP 16; TEMP 36.1; O2SAT 100; BMI 40.3
[2024-09-04 23:25] LABS: Urine N gonorrhoeae NOT DETECTED
[2024-09-04 23:28] LABS: Urine Chlamydia NOT DETECTED
== END 2024-09-04 21:57 | disposition left against medical advice (07) ==
PROVIDERS: Emergency Provider Emergency Medicine
DX: N89.8 Other specified noninflammatory disorders of vagina (principal)
CPT/HCPCS: 87491; 87591; 99281

== ENCOUNTER → 2024-09-05 11:27 | Outpatient (CLI) | payer OTHER, SELFPAY | LOC: LAB 11:28 | PROVIDERS: Visit Provider Chiropractor | DX: N89.8 Other specified noninflammatory disorders of vagina (principal) | CPT/HCPCS: 87210 ==